=== PATIENT | male | born 2000 | race Caucasian/White ===

== ENCOUNTER 2019-09-16 18:38 | Emergency (ER) | payer OTHER, SELFPAY ==
[2019-09-16] MEDS ORDERED: NA CHLORIDE 0.9% 1,000 ML ONE ×2 (21:16→22:20)
[2019-09-16 21:41] LABS: Absolute Lymphocytes (CBC) 1.5 K/uL (0.7-4.9); Basophils % 0.4 % (0-1.3); Hematocrit 41.1 % (39.6-49.0); Lymphocytes % 18.6 % (15.3-44.8); MPV 8.2 fL (7.6-11.3); RBC Red Blood Cell Count 4.83 M/uL (4.33-5.43)
[2019-09-16 21:53] LABS: Albumin 3.5 g/dL (3.4-5.0); Bilirubin Direct 0.1 mg/dL (0-0.2); Bilirubin Total 0.5 mg/dL (0.2-1.0); Potassium 3.8 mmol/L (3.5-5.1); Protein, Total 8.3 g/dL (6.4-8.2)
--- NOTE | 2019-09-16 23:01 | ER ---
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 Got very ll1 hot. Started having BAKER and chills Th night. Fever started last night. + sore throat. Coronavirus screen: Proceed with normal triage. Patient denies a cough. Patient denies shortness of breath or difficulty breathing. Patient reports a measured and/or subjective temperature greater than 100.4F. Patient denies travel on a cruise ship or to a country the [facility] currently lists as an affected area. Patient denies contact with known and/or suspected case of COVID-19. Ebola Screen: Patient denies travel to an Ebola-affected area in the 21 days before illness onset. Initial Sepsis Screen: Does the patient meet any 2 criteria? HR > 90 bpm. No. Patient's initial sepsis screen is negative. Risk Assessment: Do you want to hurt yourself or someone else? Patient reports no desire to harm self or others. Onset of symptoms was September 12, 2019. 18:56 Method Of Arrival: Ambulatory ll1 18:56 Acuity: MARYLU 3 ll1 21:52 Initial Sepsis Screen: Does the patient have a suspected source of infection? No. vc Patient's initial sepsis screen is negative. Historical: - Allergies: 18:59 NKDA; ll1 - PSHx: 18:59 None; ll1 - Immunization history:: Flu vaccine is not up to date. - Social history:: Smoking status: Patient denies any tobacco usage or history of. Patient/guardian denies using alcohol, street drugs, tobacco products. Screenin:51 Abuse screen: Denies threats or abuse. Nutritional screening: No deficits noted. vc Tuberculosis screening: No symptoms or risk factors identified. Fall Risk None identified. Assessment: 21:49 General: Appears in no apparent distress. comfortable, Behavior is cooperative, vc anxious, quiet. General: Behavior is calm, cooperative, appropriate for age. Pain: Denies pain. Neuro: Level of Consciousness is awake, alert, obeys commands, Oriented to person, place, time, situation, Appropriate for age Reports weakness. Cardiovascular: Capillary refill < 3 seconds Patient's skin is warm and dry. Respiratory: Airway is patent Respiratory effort is even, unlabored, Respiratory pattern is regular, symmetrical. Respiratory: Denies shortness of breath at rest. GI: No signs and/or symptoms were reported involving the gastrointestinal system. : No signs and/or symptoms were reported regarding the genitourinary system. Derm: Skin is intact, is healthy with good turgor, Skin temperature is warm. 23:14 Reassessment: Patient appears in no apparent distress at this time. Patient and/or vc family updated on plan of care and expected duration. Pain level reassessed. Patient is alert, oriented x 3, equal unlabored respirations, skin warm/dry/pink. Patient states feeling better. Patient states symptoms have improved. Vital Signs: 18:56 BP 158 / 69; Pulse 104; Resp 18; Temp 100.2; Pulse Ox 99% ; Weight 131.54 kg; Height 5 ll1 ft. 10 in. (177.80 cm); Pain 8/10; 22:00 BP 151 / 69; Pulse 91; Resp 18; Pulse Ox 99% on R/A; vc 23:00 BP 118 / 70; Pulse 98; Resp 18; Pulse Ox 99% on R/A; vc 23:13 BP 118 / 70; Pulse 96; Resp 16; Pulse Ox 100% ; rv 18:56 Body Mass Index 41.61 (131.54 kg, 177.80 cm) ll1 ED Course: 18:41 Patient arrived in ED. fj1 18:58 Triage completed. ll1 18:59 Arm band placed on Patient notified of wait time. ll1 20:57 Antoni Pearce NP is PHCP. pm1 20:57 Ervin Tyler MD is Attending Physician. pm1 21:04 Natasha Maynard RN is Primary Nurse. vc 21:51 Patient has correct armband on for positive identification. Bed in low position. Pulse vc ox on. NIBP on. 23:13 No provider procedures requiring assistance completed. IV discontinued, intact, rv bleeding controlled, No redness/swelling at site. Pressure dressing applied. Administered Medications: 21:30 Drug: NS 0.9% 1000 ml Route: IV; Rate: 1000 ml; Site: right antecubital; vc 22:15 Drug: NS 0.9% 1000 ml Route: IV; Rate: 1000 ml; Site: right antecubital; vc Outcome: 23:00 Discharge ordered by . pm1 23:13 Discharged to home ambulatory. vc 23:13 Condition: good 23:13 Discharge instructions given to patient, Instructed on discharge instructions, follow up and referral plans. Demonstrated understanding of instructions, follow-up care. 23:14 Discharged to home ambulatory. rv 23:14 Condition: good 23:14 Discharge instructions given to patient, Instructed on discharge instructions, follow up and referral plans. Demonstrated understanding of instructions, follow-up care. 23:14 Patient left the ED. rv Addendum: 09/18/2019 17:58 Addendum: Other Pt notified of negative result by JENNIFER Lynn. Pt in the d m5 department when we were notified of his results. Signatures: Angie Ahuja RN RN dm5 Antoni Pearce, MANAGER COMMUNITY MANAGER COMMUNITY pm1 Jeremiah Garcia RN RN rv Natasha Maynard RN RN vc James, Frank fj1 Richard Mitchell RN RN ll1 Corrections: (The following items were deleted from the chart) 09/15 23:13 23:12 BP 151 / 69; Pulse 91bpm; Resp 18bpm; Pulse Ox 99% RA; vc vc
--- NOTE | 2019-09-16 23:01 | EDPHYS ---
Physician Documentation [facility] Name: Ar De Souza Age: 18 yrs Sex: Male : 2000 Arrival Date: 09/16/2019 Time: 18:41 Bed 4 Private MD: ED Physician Ervin Tyler HPI: 09/15 22:38 This 18 yrs old Male presents to ER via Ambulatory with complaints of Heat pm1 Exposure. 22:38 Onset: The symptoms/episode began/occurred yesterday. Associated signs and symptoms: pm1 Pertinent positives: fever, sore throat, Pertinent negatives: abdominal pain, chest pain, diarrhea, shortness of breath. The patient has not experienced similar symptoms in the past. The patient has not recently seen a physician. 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 Did not drink enough fluids and feels that he has heat exposure. Immediately after getting out of the tank he started feeling feverish with body aches and a sore throat. Historical: - Allergies: 18:59 NKDA; ll1 - PSHx: 18:59 None; ll1 - Immunization history:: Flu vaccine is not up to date. - Social history:: Smoking status: Patient denies any tobacco usage or history of. Patient/guardian denies using alcohol, street drugs, tobacco products. ROS: 22:38 Eyes: Negative for injury, pain, redness, and discharge. pm1 22:38 Neck: Negative for injury, pain, and swelling, Cardiovascular: Negative for chest pain, palpitations, and edema, Respiratory: Negative for shortness of breath, cough, wheezing, and pleuritic chest pain, Abdomen/GI: Negative for abdominal pain, nausea, vomiting, diarrhea, and constipation, Back: Negative for injury and pain, : Negative for injury, bleeding, discharge, and swelling, MS/Extremity: Negative for injury and deformity, Skin: Negative for injury, rash, and discoloration, Neuro: Negative for headache, weakness, numbness, tingling, and seizure. 22:38 Constitutional: Positive for body aches, fever, Negative for poor PO intake. 22:38 ENT: Positive for sore throat, Negative for ear pain, difficulty swallowing, difficulty handling secretions, hoarseness. Exam: 22:38 Constitutional: This is a well developed, well nourished patient who is awake, alert, pm1 and in no acute distress. Head/Face: Normocephalic, atraumatic. ENT: Nares patent. No nasal discharge, no septal abnormalities noted. Tympanic membranes are normal and external auditory canals are clear. Oropharynx with no redness, swelling, or masses, exudates, or evidence of obstruction, uvula midline. Mucous membranes moist. Neck: Trachea midline, no thyromegaly or masses palpated, and no cervical lymphadenopathy. Supple, full range of motion without nuchal rigidity, or vertebral point tenderness. No Meningismus. Chest/axilla: Normal chest wall appearance and motion. Nontender with no deformity. No lesions are appreciated. Cardiovascular: Regular rate and rhythm with a normal S1 and S2. No gallops, murmurs, or rubs. Normal PMI, no JVD. No pulse deficits. Respiratory: Lungs have equal breath sounds bilaterally, clear to auscultation and percussion. No rales, rhonchi or wheezes noted. No increased work of breathing, no retractions or nasal flaring. Abdomen/GI: Soft, non-tender, with normal bowel sounds. No distension or tympany. No guarding or rebound. No evidence of tenderness throughout. Back: No spinal tenderness. No costovertebral tenderness. Full range of motion. Skin: Warm, dry with normal turgor. Normal color with no rashes, no lesions, and no evidence of cellulitis. MS/ Extremity: Pulses equal, no cyanosis. Neurovascular intact. Full, normal range of motion. 22:38 Neuro: Orientation: is normal, Mentation: is normal, Motor: is normal, moves all fours, Sensation: is normal, no obvious gross deficits. Vital Signs: 18:56 BP 158 / 69; Pulse 104; Resp 18; Temp 100.2; Pulse Ox 99% ; Weight 131.54 kg; Height 5 ll1 ft. 10 in. (177.80 cm); Pain 8/10; 22:00 BP 151 / 69; Pulse 91; Resp 18; Pulse Ox 99% on R/A; vc 23:00 BP 118 / 70; Pulse 98; Resp 18; Pulse Ox 99% on R/A; vc 23:13 BP 118 / 70; Pulse 96; Resp 16; Pulse Ox 100% ; rv 18:56 Body Mass Index 41.61 (131.54 kg, 177.80 cm) ll1 MDM: 21:01 Patient medically screened. [facility] 22:44 Data reviewed: vital signs. Data interpreted: Pulse oximetry: on room air is 99 %. pm1 Interpretation: normal. 22:59 Counseling: I had a detailed discussion with the patient and/or guardian regarding: the pm1 historical points, exam findings, and any diagnostic results supporting the discharge/admit diagnosis, lab results, the need for outpatient follow up, to return to the emergency department if symptoms worsen or persist or if there are any questions or concerns that arise at home. 09/15 21:01 Order name: Flu; Complete Time: 22:10 pm1 09/15 21:01 Order name: Strep; Complete Time: 22:10 pm1 09/15 21:01 Order name: Basic Metabolic Panel; Complete Time: 22:10 pm1 09/15 21:01 Order name: CBC with Diff; Complete Time: 21:53 pm1 09/15 21:01 Order name: Hepatic Function; Complete Time: 22:10 pm1 09/15 21:01 Order name: CPK; Complete Time: 22:10 pm1 09/15 21:01 Order name: IV Saline Lock; Complete Time: 21:44 pm1 09/15 21:01 Order name: Labs collected and sent; Complete Time: 21:45 pm1 09/15 21:01 Order name: COVID-19 pm1 09/15 22:06 Order name: Throat Culture EDMS Administered Medications: 21:30 Drug: NS 0.9% 1000 ml Route: IV; Rate: 1000 ml; Site: right antecubital; vc 22:15 Drug: NS 0.9% 1000 ml Route: IV; Rate: 1000 ml; Site: right antecubital; vc Disposition: 09/16 07:38 Co-signature as Attending Physician, Ervin Tyler MD I agree with the assessment and [facility] plan of care. Disposition: 09/16/19 23:00 Discharged to Home. Impression: Exposure to excessive natural heat, Dehydration. - Condition is Stable. - Discharge Instructions: Dehydration, Adult, Heat Exhaustion Information, Rehydration, Adult. - Work release form, Medication Reconciliation Form, Thank You Letter, Antibiotic Education, Prescription Opioid Use form. - Follow up: Emergency Department; When: As needed; Reason: Worsening of condition. Follow up: Private Physician; When: 2 - 3 days; Reason: Recheck today's complaints, Continuance of care, Re-evaluation by your physician. - Problem is new. - Symptoms have improved. Signatures: Dispatcher [employer] EDErvin Baires, Antoni Clemens MD, cha, LOAN COORDINATOR LOAN COORDINATOR pm1 Jeremiah Garcia, RN RN rv Natasha Maynard RN RN Richard Jacobo RN RN ll1 Corrections: (The following items were deleted from the chart) 09/15 23:14 23:00 09/16/2019 23:00 Discharged to Home. Impression: Exposure to excessive natural rv heat; Dehydration. Condition is Stable. Forms are Medication Reconciliation Form, Thank You Letter, Antibiotic Education, Prescription Opioid Use. Follow up: Emergency Department; When: As needed; Reason: Worsening of condition. Follow up: Private Physician; When: 2 - 3 days; Reason: Recheck today's complaints, Continuance of care, Re-evaluation by your physician. Problem is new. Symptoms have improved. pm1
[2019-09-16 23:27] VITALS: TEMP 100.2
[2019-09-16 23:30] VITALS: BP 118/70
[2019-09-16 23:31] VITALS: O2SAT 100
== END 2019-09-16 23:14 | disposition home or self-care (01) ==
LOC: ER 18:38
DX: E86.0 Dehydration (principal); Z20.828 Contact with and (suspected) exposure to other viral communicable diseases; X30.XXXA Exposure to excessive natural heat, initial encounter
CPT/HCPCS: 36415; 80048; 80076; 82550; 85025; 87070; 87081; 87804; 99283; J7030; U0001

== ENCOUNTER 2019-09-18 15:11 | Emergency (ER) | payer SELFPAY, OTHER ==
[2019-09-18] MEDS ORDERED: ACETAMINOPHEN 500 MG TAB ONE (15:35)
[2019-09-18] MEDS ORDERED: NA CHLORIDE 0.9% 1,000 ML ONE (17:37)
[2019-09-18 18:13] LABS: Absolute Lymphocytes (CBC) 1.3 K/uL (0.7-4.9); Basophils % 0.4 % (0-1.3); Hematocrit 39.1 % (39.6-49.0); Lymphocytes % 13.5 % (15.3-44.8); RBC Red Blood Cell Count 4.68 M/uL (4.33-5.43)
--- NOTE | 2019-09-19 10:25 | EDPHYS ---
Physician Documentation [facility] Name: Ar De Souza Age: 18 yrs Sex: Male : 2000 Arrival Date: 09/18/2019 Time: 15:15 Bed 14 Private MD: ED Physician Abel Amin HPI: 09/17 15:26 This 18 yrs old Male presents to ER via Ambulatory with complaints of jmm Headache, Fever. 15:26 The patient reports fever, not measured (subjective). Onset: The symptoms/episode jmm began/occurred gradually, 1 day(s) ago. Modifying factors: there are no obvious modifying factors. Associated signs and symptoms: Pertinent negatives: abdominal pain, backache, chest pain, cough, diarrhea. Patient complains of joint pain and body aches beginning yesterday. Seen in the ED 3 days prior with concerns for heat exhaustion. Developed fever yesterday. Denies cough, shortness of breath, abdominal pain, mild headache, denies neck pain. . Historical: - Allergies: 15:25 NKDA; ca1 - Home Meds: 15:25 None [Active]; ca1 - PMHx: 15:25 None; ca1 - PSHx: 15:25 None; ca1 - Immunization history:: Adult Immunizations up to date. - Social history:: Smoking status: Patient denies any tobacco usage or history of. ROS: 15:26 Cardiovascular: Negative for chest pain, palpitations, and edema, Respiratory: Negative jmm for shortness of breath, cough, wheezing, and pleuritic chest pain. 15:26 Abdomen/GI: Negative for abdominal pain, nausea, vomiting, diarrhea, and constipation. 15:26 Constitutional: Positive for fever. 15:26 Neuro: Positive for headache. 15:26 All other systems are negative. Exam: 15:26 Constitutional: This is a well developed, well nourished patient who is awake, alert, jmm and in no acute distress. Head/Face: atraumatic. Eyes: EOMI, no conjunctival erythema appreciated ENT: Moist Mucus Membranes Neck: Trachea midline, Supple Chest/axilla: Normal chest wall appearance and motion. Cardiovascular: Regular rate and rhythm. No edema appreciated Respiratory: Normal respirations, no respiratory distress appreciated Abdomen/GI: Non distended, soft Back: Normal ROM Skin: General appearance color normal MS/ Extremity: Moves all extremities, no obvious deformities appreciated, no edema noted to the lower extremities Neuro: Awake and alert, normal gait Psych: Behavior is normal, Mood is normal, Patient is cooperative and pleasant Vital Signs: 15:20 BP 138 / 73; Pulse 105; Resp 20 S; Temp 101.4(O); Pulse Ox 100% on R/A; Weight 131.54 ca1 kg (R); Height 5 ft. 10 in. (177.80 cm) (R); Pain 9/10; 16:39 Temp 100.5; bp 18:41 BP 140 / 71; Pulse 78; Resp 16; Temp 97.9; Pulse Ox 99% ; bp 19:44 BP 130 / 53; Pulse 79; Resp 17 S; Pulse Ox 100% on R/A; jd3 20:56 BP 132 / 70; Pulse 88; Resp 16 S; Pulse Ox 100% on R/A; jd3 15:20 Body Mass Index 41.61 (131.54 kg, 177.80 cm) ca1 MDM: 17:20 Patient medically screened. [facility] 21:01 Data reviewed: vital signs, nurses notes. Counseling: I had a detailed discussion with brandon the patient and/or guardian regarding: the historical points, exam findings, and any diagnostic results supporting the discharge/admit diagnosis, lab results, radiology results, the need for outpatient follow up, to return to the emergency department if symptoms worsen or persist or if there are any questions or concerns that arise at home. ED course: Patient is alert and non toxic in appearance in the ED. No signs of resp distress. CXR clear. Patient is given strict return precautions. Patient understood and agrees with the plan of care. . 09/17 17:22 Order name: Flu [facility] 09/17 17:22 Order name: Strep [facility] 09/17 17:22 Order name: CBC with Diff [facility] 09/17 17:22 Order name: Procalcitonin [facility] 09/17 17:22 Order name: Lactate [facility] 09/17 18:42 Order name: Urine Dipstick--Ancillary (enter results) [facility] 09/17 17:22 Order name: Chest Single View XRAY [facility] 09/17 17:22 Order name: Urine Dipstick-Ancillary (obtain specimen); Complete Time: 18:33 morenita Administered Medications: 15:28 Drug: Tylenol 1000 mg Route: PO; ca1 19:00 Follow up: Response: No adverse reaction jd3 17:45 Drug: NS 0.9% 1000 ml Route: IV; Rate: 1 bolus; Site: right antecubital; bp 21:16 Follow up: Response: No adverse reaction; IV Status: Completed infusion; IV Intake: jd3 1000ml Disposition: 09/18 07:14 Co-signature as Attending Physician, Abel Amin MD. rn Disposition: 09/18/19 21:03 Discharged to Home. Impression: Viral Infection. - Condition is Stable. - Discharge Instructions: Viral Respiratory Infection. - Medication Reconciliation Form, Thank You Letter, Antibiotic Education, Prescription Opioid Use, Work release form form. - Follow up: Private Physician; When: 2 - 3 days; Reason: Recheck today's complaints, Continuance of care, Re-evaluation by your physician. Signatures: Dispatcher [employer] EDMS Ash Krishna PA PA jmm Nieto, Roman, MD MD rn Davies, Jonathon, RN RN jKhari Geiger RN RN Wandy Murillo RN RN ca1 Corrections: (The following items were deleted from the chart) 09/17 21:18 21:03 09/18/2019 21:03 Discharged to Home. Impression: Viral Infection. Condition is jd3 Stable. Forms are Medication Reconciliation Form, Thank You Letter, Antibiotic Education, Prescription Opioid Use. Follow up: Private Physician; When: 2 - 3 days; Reason: Recheck today's complaints, Continuance of care, Re-evaluation by your physician. brandon
--- NOTE | 2019-09-19 10:25 | ER ---
Nurse's Notes [facility] [place] Name: Ar De Souza Age: 18 yrs Sex: Male : 2000 Arrival Date: 09/18/2019 Time: 15:15 Bed 14 Private MD: Diagnosis: Viral Infection Presentation: 09/17 15:20 Chief complaint: Patient states: I came in Tuesday night, I had a heat exhaustion. They ca1 gave me 2 bags of IV fluids. I was sent home, felt better. But last night, I started feeling ill again, headache, fever, N/V, muscle aches. Denies diarrhea, SOB, cough. Coronavirus screen: Patient denies a cough. Patient denies shortness of breath or difficulty breathing. Patient reports a measured and/or subjective temperature greater than 100.4F. Patient denies travel on a cruise ship or to a country the [facility] currently lists as an affected area. Patient denies contact with known and/or suspected case of COVID-19. Pt states, "I was swabbed on Tuesday for FLU, Strep, Covid-19 Tuesday and I don't have the results yet". Pt instructed to keep mask on at all times, keep distance from other people in the lobby. PT verbalizes understanding to instructions. Ebola Screen: Patient negative for fever greater than or equal to 101.5 degrees Fahrenheit, and additional compatible Ebola Virus Disease symptoms Patient denies exposure to infectious person. Patient denies travel to an Ebola-affected area in the 21 days before illness onset. No symptoms or risks identified at this time. Initial Sepsis Screen: Does the patient meet any 2 criteria? No. Patient's initial sepsis screen is negative. Does the patient have a suspected source of infection? No. Patient's initial sepsis screen is negative. Risk Assessment: Do you want to hurt yourself or someone else? Patient reports no desire to harm self or others. Onset of symptoms was September 18, 2019. 15:20 Method Of Arrival: Ambulatory ca1 15:20 Acuity: MARYLU 3 ca1 Triage Assessment: 16:37 Headache History: The patient has had previous headaches and this one is similar to bp previous episodes. General: Appears in no apparent distress. uncomfortable, obese, Behavior is calm, cooperative, appropriate for age. Pain: Complains of pain in head Pain currently is 4 out of 10 on a pain scale. Pain began 1 day ago. Also complains of no other associated symptoms. EENT: No deficits noted. Neuro: Level of Consciousness is awake, alert, obeys commands, Oriented to person, place, time, situation, Appropriate for age Reports headache. Cardiovascular: Rhythm is sinus tachycardia. Respiratory: No deficits noted. GI: No signs and/or symptoms were reported involving the gastrointestinal system. : No signs and/or symptoms were reported regarding the genitourinary system. Derm: No deficits noted. Musculoskeletal: No deficits noted. Historical: - Allergies: 15:25 NKDA; ca1 - Home Meds: 15:25 None [Active]; ca1 - PMHx: 15:25 None; ca1 - PSHx: 15:25 None; ca1 - Immunization history:: Adult Immunizations up to date. - Social history:: Smoking status: Patient denies any tobacco usage or history of. Screenin:39 Abuse screen: Denies threats or abuse. Denies injuries from another. Nutritional bp screening: No deficits noted. Tuberculosis screening: No symptoms or risk factors identified. Fall Risk None identified. Assessment: 16:39 General: SEE TRIAGE NOTE. Pain: Complains of pain in head. bp 18:42 Reassessment: PER LAB, RESULTS PENDING. PT ASYMPTOMATIC AT THIS TIME. bp 19:44 General: Appears in no apparent distress. comfortable, Behavior is calm, cooperative, jd3 appropriate for age. Pain: Complains of pain in head Quality of pain is described as aching. Neuro: Level of Consciousness is awake, alert, obeys commands, Oriented to person, place, time, situation, Reports headache. Cardiovascular: Denies chest pain, Capillary refill < 3 seconds Patient's skin is warm and dry. Respiratory: Airway is patent Respiratory effort is even, unlabored, Respiratory pattern is regular, symmetrical, Denies cough, shortness of breath. GI: No signs and/or symptoms were reported involving the gastrointestinal system. : No signs and/or symptoms were reported regarding the genitourinary system. EENT: No signs and/or symptoms were reported regarding the EENT system. Derm: Skin is intact, Skin is dry, Skin is normal, Skin temperature is warm. Musculoskeletal: Circulation, motion, and sensation intact. Range of motion: intact in all extremities. 20:56 Reassessment: Patient appears in no apparent distress at this time. Patient and/or jd3 family updated on plan of care and expected duration. Pain level reassessed. Patient is alert, oriented x 3, equal unlabored respirations, skin warm/dry/pink. awaiting disposition. 21:17 Reassessment: Patient appears in no apparent distress at this time. Patient and/or jd3 family updated on plan of care and expected duration. Pain level reassessed. Patient is alert, oriented x 3, equal unlabored respirations, skin warm/dry/pink. Vital Signs: 15:20 BP 138 / 73; Pulse 105; Resp 20 S; Temp 101.4(O); Pulse Ox 100% on R/A; Weight 131.54 ca1 kg (R); Height 5 ft. 10 in. (177.80 cm) (R); Pain 9/10; 16:39 Temp 100.5; bp 18:41 BP 140 / 71; Pulse 78; Resp 16; Temp 97.9; Pulse Ox 99% ; bp 19:44 BP 130 / 53; Pulse 79; Resp 17 S; Pulse Ox 100% on R/A; jd3 20:56 BP 132 / 70; Pulse 88; Resp 16 S; Pulse Ox 100% on R/A; jd3 15:20 Body Mass Index 41.61 (131.54 kg, 177.80 cm) ca1 ED Course: 15:15 Patient arrived in ED. mr 15:25 Triage completed. ca1 15:25 Arm band placed on right wrist. ca1 15:30 Inserted saline lock: 20 gauge in right antecubital area, using aseptic technique. bp Blood collected. 16:37 Khari Veronica, MIRZA is Primary Nurse. bp 16:38 Ash Krishna PA is PHCP. jmm 16:38 Abel Amin MD is Attending Physician. jmm 16:39 Patient has correct armband on for positive identification. Bed in low position. Call bp light in reach. Side rails up X2. 21:15 No provider procedures requiring assistance completed. IV discontinued, intact, jd3 bleeding controlled, No redness/swelling at site. Pressure dressing applied. 09/18 01:10 Chest Single View XRAY In Process Unspecified. EDMS Administered Medications: 09/17 15:28 Drug: Tylenol 1000 mg Route: PO; ca1 19:00 Follow up: Response: No adverse reaction jd3 17:45 Drug: NS 0.9% 1000 ml Route: IV; Rate: 1 bolus; Site: right antecubital; bp 21:16 Follow up: Response: No adverse reaction; IV Status: Completed infusion; IV Intake: jd3 1000ml Intake: 21:16 IV: 1000ml; Total: 1000ml. jd3 Outcome: 21:03 Discharge ordered by MD. taylor 21:15 Discharged to home ambulatory, with family. jd3 21:15 Condition: stable 21:15 Discharge instructions given to patient, Instructed on discharge instructions, follow up and referral plans. Demonstrated understanding of instructions, follow-up care. 21:18 Patient left the ED. jd3 Signatures: Dispatcher [employer] EDMS Ash Krishna PA PA jmm ShaneHyacinth mr Rolle, Harris RN RN jKhari Geiger RN MIRAZ bp Wandy Murillo RN RN ca1 Corrections: (The following items were deleted from the chart) 15:33 15:20 Coronavirus screen: Proceed with normal triage. Patient denies a cough. Patient ca1 denies shortness of breath or difficulty breathing. Patient reports a measured and/or subjective temperature greater than 100.4F. Patient denies travel on a cruise ship or to a country the [facility] currently lists as an affected area. Patient denies contact with known and/or suspected case of COVID-19. I was swabbed on Tuesday for FLU, Strep, Covid-19 Tuesday ca1
[2019-09-19 11:53] VITALS: TEMP 97.9
[2019-09-19 11:54] VITALS: O2SAT 100
[2019-09-19 11:55] VITALS: BP 132/70
[2019-09-19 13:05] LABS: Urine Blood TRACE (NEG); Urine Glucose NEGATIVE (NEG); Urine Protein TRACE (NEG)
--- NOTE | 2019-10-12 14:08 | RAD REPORT ---
EXAM DESCRIPTION: RAD - Chest Single View - 09/18/2019 6:08 pm CLINICAL HISTORY: FEVER COMPARISON: None TECHNIQUE: AP portable chest image was obtained 09/18/2019 6:08 pm . FINDINGS: Original dictation could not be retrieved. Exam was resubmitted for interpretation. Lung volumes are low. Portable technique and large body habitus further accentuate the exam limitatio ns. No peripheral mass or consolidation. No significant degree of failure or volume overload. Heart a nd vasculature are normal. No measurable pleural effusion and no pneumothorax. No acute bony abnormal ity seen. No acute aortic findings suspected. IMPRESSION: Limited portable study showing no acute cardiopulmonary finding.
== END 2019-09-18 21:18 | disposition home or self-care (01) ==
LOC: ER 15:11
DX: B34.9 Viral infection, unspecified (principal)
CPT/HCPCS: 36415; 71045; 81003; 83605; 84145; 85025; 87070; 87081; 87804; 96360; 96361; 99284; J7030

== ENCOUNTER 2020-11-02 02:23 | Emergency (ER) | payer SELFPAY ==
[2020-11-02] MEDS ORDERED: ACETAMINOPHEN 500 MG TAB ONE (03:34)
--- NOTE | 2020-11-02 05:57 | ER ---
Nurse's Notes [facility] [place] Name: Ar De Souza Age: 19 yrs Sex: Male : 2000 Arrival Date: 11/02/2020 Time: 02:28 Bed 13 Private MD: Diagnosis: Covid pneumonia Presentation: 11/02 03:15 Chief complaint: Patient states: he has been running fever since Tuesday and having bb difficulty breathing. Coronavirus screen: difficulty breathing, fever, Client presents with at least one sign or symptom that may indicate coronavirus-19. Standard/surgical mask placed on the client. Ebola Screen: No symptoms or risks identified at this time. Initial Sepsis Screen: Does the patient meet any 2 criteria? No. Patient's initial sepsis screen is negative. Does the patient have a suspected source of infection? No. Patient's initial sepsis screen is negative. Risk Assessment: Do you want to hurt yourself or someone else? Patient reports no desire to harm self or others. Onset of symptoms was October 28, 2020. 03:15 Method Of Arrival: Ambulatory bb 03:15 Acuity: MARYLU 3 bb Triage Assessment: 03:17 General: Appears in no apparent distress. uncomfortable, obese, Behavior is bb cooperative, anxious. Pain: Complains of pain in throat Pain currently is 10 out of 10 on a pain scale. EENT: Throat is clear. Neuro: Level of Consciousness is awake, alert, obeys commands, Oriented to person, place, time, situation. Cardiovascular: Capillary refill < 3 seconds Patient's skin is warm and dry. Respiratory: Reports shortness of breath Respiratory effort is even, unlabored, Onset: The symptoms/episode began/occurred Tuesday, the patient has mild shortness of breath. Derm: Skin is pink, warm \T\ dry. Musculoskeletal: Circulation, motion, and sensation intact. Historical: - Allergies: 03:17 NKDA; bb - Home Meds: 03:17 None [Active]; bb - PMHx: 03:17 None; bb - PSHx: 03:17 None; bb - Immunization history:: Adult Immunizations up to date, Client reports having NOT received the Covid vaccine. - Social history:: Smoking status: Patient denies any tobacco usage or history of. Patient/guardian denies using alcohol, street drugs. Screenin:00 Abuse screen: Denies threats or abuse. Nutritional screening: No deficits noted. bb Tuberculosis screening: No symptoms or risk factors identified. Fall Risk None identified. Assessment: 05:00 General: Appears in no apparent distress. uncomfortable, Behavior is calm, cooperative. bb Neuro: Level of Consciousness is awake, alert, obeys commands, Oriented to person, place, time, situation. Cardiovascular: Rhythm is sinus tachycardia. Respiratory: Airway is patent Breath sounds are clear bilaterally. GI: No signs and/or symptoms were reported involving the gastrointestinal system. Derm: Skin is pink, warm \T\ dry. Musculoskeletal: Circulation, motion, and sensation intact. 06:40 Reassessment: Patient is alert, oriented x 3, equal unlabored respirations, skin bb warm/dry/pink. pt verbalized understanding of and agrees to plan of care discharge instructions given pt ambulated with steady gait to exit. Vital Signs: 03:15 BP 105 / 68; Pulse 121; Resp 20 S; Temp 101(O); Pulse Ox 97% on R/A; Weight 127.01 kg bb (R); Height 5 ft. 10 in. (177.80 cm) (R); Pain 10/10; 06:42 BP 126 / 83; Pulse 118; Resp 20 S; Temp 99.6(O); Pulse Ox 96% on R/A; bb 03:15 Body Mass Index 40.18 (127.01 kg, 177.80 cm) bb ED Course: 02:28 Patient arrived in ED. bp1 03:13 Marie Ge, RN is Primary Nurse. bb 03:17 Triage completed. bb 03:17 Arm band placed on Patient placed in waiting room, Patient notified of wait time. bb Antipyretics given from triage as ordered by an ER provider. Labs ordered per protocol. 05:00 Patient has correct armband on for positive identification. bb 05:01 Ciro Quezada MD is Attending Physician. pkl 06:09 XRAY CXR (1 view) In Process Unspecified. EDMS 06:41 No provider procedures requiring assistance completed. Patient did not have IV access bb during this emergency room visit. Administered Medications: 03:15 Drug: Tylenol 1000 mg Route: PO; bb 06:33 Drug: Decadron (dexamethasone) 10 mg Route: IM; Site: right deltoid; bb 06:41 Follow up: Response: No adverse reaction bb 06:33 Drug: Zithromax (azithromycin) 500 mg Route: PO; bb 06:42 Follow up: Response: No adverse reaction bb Outcome: 05:57 Discharge ordered by . rosario 06:41 Discharged to home ambulatory. bb 06:41 Condition: stable 06:41 Discharge instructions given to patient, Instructed on discharge instructions, follow up and referral plans. medication usage, Demonstrated understanding of instructions, follow-up care, medications, Prescriptions given X 4. 06:42 Patient left the ED. bb Signatures: Dispatcher [employer] EDMS Ciro Quezada MD MD pkl Ballard, Brenda, RN RN Mariam Pichardo
--- NOTE | 2020-11-02 05:57 | EDPHYS ---
Physician Documentation [facility] Adonis Name: Ar De Souza Age: 19 yrs Sex: Male : 2000 Arrival Date: 11/02/2020 Time: 02:28 Bed 13 Private MD: ED Physician Ciro Quezada HPI: 11/02 05:08 This 19 yrs old Male presents to ER via Ambulatory with complaints of pkl Breathing Difficulty. 05:08 The patient has shortness of breath at rest. Onset: The symptoms/episode began/occurred pkl 4 day(s) ago. Associated signs and symptoms: Pertinent positives: non-productive cough, sore throat . Patient has been exposed to someone with positive Covid 19. Historical: - Allergies: 03:17 NKDA; bb - Home Meds: 03:17 None [Active]; bb - PMHx: 03:17 None; bb - PSHx: 03:17 None; bb - Immunization history:: Adult Immunizations up to date, Client reports having NOT received the Covid vaccine. - Social history:: Smoking status: Patient denies any tobacco usage or history of. Patient/guardian denies using alcohol, street drugs. ROS: 05:08 Eyes: Negative for injury, pain, redness, and discharge. pkl 05:08 ENT: Positive for sore throat. 05:08 Neck: Negative for stiffness. 05:08 Cardiovascular: Negative for chest pain. 05:08 Respiratory: Positive for cough, shortness of breath. 05:08 Abdomen/GI: Negative for abdominal pain, nausea, vomiting, and diarrhea. 05:08 Back: Negative for acute changes. 05:08 : Negative for urinary symptoms. 05:08 MS/extremity: Negative for acute changes. 05:08 Skin: Negative for rash. 05:08 Neuro: Negative for altered mental status, loss of consciousness. Exam: 05:08 Head/Face: Normocephalic, atraumatic. Eyes: Pupils equal round and reactive to light, pkl extra-ocular motions intact. Lids and lashes normal. Conjunctiva and sclera are non-icteric and not injected. Cornea within normal limits. Periorbital areas with no swelling, redness, or edema. 05:08 ENT: Posterior pharynx: erythema, that is mild. 05:08 Neck: Exam negative for nuchal rigidity. 05:08 Chest/axilla: Exam negative for acute changes. 05:08 Cardiovascular: Rate: tachycardic, actual rate is 121 bpm, Rhythm: regular. 05:08 Respiratory: the patient does not display signs of respiratory distress, Respirations: normal, Breath sounds: rales, that are mild, are scattered. 05:08 Abdomen/GI: Bowel sounds: normal, Palpation: abdomen is soft and non-tender, in all quadrants. 05:08 Back: Exam negative for acute changes. 05:08 : Exam negative for acute changes. 05:08 Musculoskeletal/extremity: Exam is negative for acute changes. 05:08 Skin: Exam negative for rash. 05:08 Neuro: Orientation: is normal, Mentation: is normal, Cranial nerves: grossly normal, Motor: is normal. Vital Signs: 03:15 BP 105 / 68; Pulse 121; Resp 20 S; Temp 101(O); Pulse Ox 97% on R/A; Weight 127.01 kg bb (R); Height 5 ft. 10 in. (177.80 cm) (R); Pain 10/10; 06:42 BP 126 / 83; Pulse 118; Resp 20 S; Temp 99.6(O); Pulse Ox 96% on R/A; bb 03:15 Body Mass Index 40.18 (127.01 kg, 177.80 cm) bb MDM: 05:01 Patient medically screened. pkl 05:37 Data reviewed: vital signs, nurses notes, lab test result(s), radiologic studies, plain pkl films. 05:43 ED course: Discussed Lab and X' rays with patient. Advised to quarantine for 10 days. pkl To check O2 sats daily. To return to ER for evaluation if O2 sat is less than 92%. patient understood instructions. 11/02 03:15 Order name: Flu; Complete Time: 05:02 bb 11/02 03:15 Order name: Strep; Complete Time: 05:02 bb 11/02 04:18 Order name: Throat Culture EDMS 11/02 04:49 Order name: SARS-COV-2 RT PCR; Complete Time: 05:02 EDFL 11/02 05:03 Order name: XRAY CXR (1 view) pkl Administered Medications: 03:15 Drug: Tylenol 1000 mg Route: PO; bb 06:33 Drug: Decadron (dexamethasone) 10 mg Route: IM; Site: right deltoid; bb 06:41 Follow up: Response: No adverse reaction bb 06:33 Drug: Zithromax (azithromycin) 500 mg Route: PO; bb 06:42 Follow up: Response: No adverse reaction bb Disposition Summary: 11/02/20 05:57 Discharge Ordered Location: Home pkl Problem: new pkl Symptoms: are unchanged pkl Condition: Stable pkl Diagnosis - Covid pneumonia pkl Followup: pkl - With: Private Physician - When: 2 - 3 days - Reason: Re-evaluation by your physician Discharge Instructions: - Discharge Summary Sheet pkl Forms: - Medication Reconciliation Form pkl - Thank You Letter pkl - Antibiotic Education pkl - Prescription Opioid Use pkl Prescriptions: - Prednisone 20 mg Oral Tablet - take 1 tablet by ORAL route once daily for 5 days; 5 tablet; Refills: 0, pkl Product Selection Permitted - Zithromax Z-Negro 250 mg Oral Tablet - take 1 tablet by ORAL route as directed for 5 days Day 1 - take two (2) tablets pkl one time. Day 2, 3, 4 , 5 take one (1) tablet once daily.; 6 tablet; Refills: 0, Product Selection Permitted Signatures: Dispatcher [employer] EDCiro Rodriguez MD MD pkl Marie Ge RN RN bb Corrections: (The following items were deleted from the chart) 03:46 03:32 CORONAVIRUS ordered. EDFL EDMS
[2020-11-02 06:47] VITALS: BP 105/68; TEMP 101; O2SAT 97
[2020-11-02] MEDS ORDERED: dexAMETHasone 10 MG/ML VIAL ONE (06:50)
[2020-11-02] MEDS ORDERED: AZITHROMYCIN 250 MG TAB ONE (06:50)
--- NOTE | 2020-11-02 07:40 | RAD REPORT ---
EXAM DESCRIPTION: RAD - Chest Single View - 11/02/2020 6:09 am CLINICAL HISTORY: COUGH COMPARISON: Chest Single View dated 09/18/2019 FINDINGS: There are some scattered ill-defined opacities bilaterally. The heart size is within mayra l limits.No acute osseous abnormality. No significant pleural effusions or pneumothorax. IMPRESSION: Mild ill-defined bilateral airspace disease could reflect multifocal pneumonia including Covid-19.
== END 2020-11-02 06:42 | disposition home or self-care (01) ==
LOC: ER 02:23
DX: U07.1 COVID-19 (principal); J12.82 Pneumonia due to coronavirus disease 2019
CPT/HCPCS: 71045; 87070; 87081; 87804; 96372; 99284; J1100; U0003

== ENCOUNTER 2020-11-05 20:07 | Inpatient (IN) | payer SELFPAY ==
[2020-11-05] MEDS ORDERED: METHYLPREDNISOLONE 125 MG INJ ONE (23:30)
[2020-11-05] MEDS ORDERED: NA CHLORIDE 0.9% 1,000 ML ONE (23:30)
[2020-11-05] MEDS ORDERED: HYDROCODONE/CHLORPHEN 5 ML/OSYR ONE (23:30)
[2020-11-05 23:45] LABS: Absolute Lymphocytes (CBC) 1.1 K/uL (0.7-4.9); Basophils % 0.5 % (0-1.3); Hematocrit 44.5 % (39.6-49.0); Lymphocytes % 7.6 % (15.3-44.8); MPV 8.3 fL (7.6-11.3); RBC Red Blood Cell Count 5.17 M/uL (4.33-5.43)
[2020-11-06 00:16] LABS: Potassium 4.7 mmol/L (3.5-5.1)
[2020-11-06 00:31] LABS: Blood Morphology Comment NOT SEEN (NOT SEEN); Platelet Estimate ADEQ
[2020-11-06 00:50] LABS: Arterial Blood Carboxyhemoglob 1.7 % (0-1.5); Blood Gas Oxyhemoglobin 94.4 % (94-97); Blood O2 Saturation 96.8 % (92-98.5)
--- NOTE | 2020-11-06 01:35 | EDPHYS ---
Physician Documentation [facility] Name: Ar De Souza Age: 19 yrs Sex: Male : 2000 Arrival Date: 11/05/2020 Time: 20:10 Bed 6 Private MD: ED Physician Abel Amin HPI: 11/05 22:45 This 19 yrs old Male presents to ER via Ambulatory with complaints of rn Breathing Difficulty, cough, weakness. 22:45 The patient has shortness of breath at rest, with light activity. Onset: The rn symptoms/episode began/occurred 1 week(s) ago. Duration: The symptoms are intermittent. The patient's shortness of breath is aggravated by exertion, light activity, is alleviated by nothing. Associated signs and symptoms: Pertinent positives: non-productive cough, Pertinent negatives: fever, loss of consciousness. Severity of symptoms: At their worst the symptoms were moderate in the emergency department the symptoms are unchanged. The patient has not experienced similar symptoms in the past. The patient has been recently seen by a physician:. CovidPatient reports 1 week into this, diagnosed with Covid pneumonia recently, discharged with steroids/antibiotics/inhalers/cough medication. Patient states still does not feel well with intermittent shortness of breath especially with exertion. No chronic lung problems. No cardiac problems. Does not take any other medication.. Historical: - Allergies: 21:35 NKDA; kg - Home Meds: 21:35 None [Active]; kg - PMHx: 21:35 None; kg - PSHx: 21:35 None; kg - Immunization history:: Adult Immunizations not up to date, Client reports having NOT received the Covid vaccine. - Social history:: Smoking status: Patient denies any tobacco usage or history of. - Family history:: not pertinent. - Hospitalizations: : No recent hospitalization is reported. ROS: 22:45 Constitutional: Negative for fever, chills, and weight loss, Eyes: Negative for injury, rn pain, redness, and discharge, ENT: Positive nasal congestion and sore throat Neck: Negative for injury, pain, and swelling, Cardiovascular: Negative for chest pain, palpitations, and edema, Respiratory: Positive cough and shortness of breath Abdomen/GI: Negative for abdominal pain, nausea, vomiting, diarrhea, and constipation, Back: Negative for injury and pain, : Negative for injury, bleeding, discharge, and swelling, MS/Extremity: Negative for injury and deformity, Skin: Negative for injury, rash, and discoloration, Neuro: Negative for headache, numbness, tingling, and seizure. 22:45 All other systems are negative. Exam: 22:45 Constitutional: This is a well developed, well nourished patient who is awake, alert, rn mild tachypnea Head/Face: Normocephalic, atraumatic. Eyes: Periorbital areas with no swelling, redness, or edema. ENT: No stridor, positive dry mucous membranes Cardiovascular: Tachycardic, regular. No pulse deficits Respiratory: Mild tachypnea, no retractions Abdomen/GI: Soft, non-tender Skin: Warm, dry MS/ Extremity: Pulses equal, no cyanosis. Neuro: Awake and alert, GCS 15, oriented to person, place, time, and situation. Cranial nerves II-XII grossly intact. Motor strength 5/5 in all extremities. Sensory grossly intact. Cerebellar exam normal. Normal gait. Vital Signs: 21:29 Pulse 121; Resp 29; Temp 98.4(O); Pulse Ox 98% on R/A; Weight 131.54 kg (R); Height 5 kg ft. 10 in. (177.80 cm); Pain 01/04; 11/06 03:59 BP 137 / 61; Pulse 104; Resp 28; Pulse Ox 96% ; ea 11/05 21:29 Body Mass Index 41.61 (131.54 kg, 177.80 cm) kg MDM: 11/05 22:39 Patient medically screened. rn 11/06 00:59 ED course: Patient with significant acidosis, + anion gap, added more fluids, and rn lactate pending. ABG shows pH of 7.22 with a bicarb of 6.. 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 Interpretation: normal. Arterial blood gas: pH: 7.219, PO2: 97.6, PCO2: 15.5, HCO3: 6.1, Oxygen saturation: 96.8, Interpretation: metabolic acidosis. respiratory alkalosis. 01:31 Differential diagnosis: Bronchitis pneumonia, pulmonary edema, Sepsis Pneumonia, rn rhabdomyolysis acute kidney injury, hyperglycemia, acidosis. Data reviewed: vital signs, nurses notes, lab test result(s), radiologic studies, plain films, and as a result, I will admit patient. Test interpretation: by ED physician or midlevel provider: plain radiologic studies, Chest x-ray shows mild bilateral infiltrates. Counseling: I had a detailed discussion with the patient and/or guardian regarding: the historical points, exam findings, and any diagnostic results supporting the discharge/admit diagnosis, lab results, radiology results, the need for further work-up and treatment in the hospital. Response to treatment: the patient's symptoms have mildly improved after treatment, and as a result, I will admit patient. Admission orders: after a detailed discussion of the patient's condition and case, the admit orders are written by me. ED course: Patient with mild residual Covid pneumonia, no oxygen requirement. Seems like most of his symptoms today stem from hyperglycemia with acidosis. No known history of diabetes but strong family history of diabetics. We will start on insulin drip. 2 boluses of fluids ordered and given. Patient with some improvement. 11/05 22:44 Order name: CBC with Diff; Complete Time: 00:38 11/05 22:44 Order name: Basic Metabolic Panel; Complete Time: 11/05 22:44 Order name: Ferritin; Complete Time: 11/05 22:44 Order name: CRP; Complete Time: 11/05 23:53 Order name: Manual Differential; Complete Time: 00:38 EDPA 11/06 00:17 Order name: ABG; Complete Time: 00:51 rn 11/06 00:17 Order name: Lactate; Complete Time: 11/06 00:57 Order name: Creatine Phosphokinase; Complete Time: 01: EDPA 11/06 02:08 Order name: Glucose, Ancillary Testing; Complete Time: 06:18 EDMS 11/06 02:30 Order name: Hemoglobin A1c; Complete Time: 06:18 EDPA 11/06 03:30 Order name: Glucose, Ancillary Testing; Complete Time: 06:18 EDMS 11/06 04:22 Order name: Glucose, Ancillary Testing; Complete Time: 06:18 EDMS 11/06 05:26 Order name: Glucose, Ancillary Testing; Complete Time: 06:18 EDMS 11/06 05:28 Order name: Glucose, Ancillary Testing; Complete Time: 06:18 EDMS 11/06 06:02 Order name: Acetone Level; Complete Time: 09:25 EDMS 11/06 06:18 Order name: Basic Metabolic Panel; Complete Time: 09:25 EDMS 11/06 06:18 Order name: Lipid Profile; Complete Time: 09:25 EDMS 11/06 06:38 Order name: LDL, Direct; Complete Time: 09:25 EDMS 11/06 07:03 Order name: Procalcitonin; Complete Time: 09:25 EDMS 11/06 07:24 Order name: Glucose, Ancillary Testing; Complete Time: 09:25 EDMS 11/06 08:50 Order name: Phosphorus; Complete Time: 09:25 EDMS 11/06 08:50 Order name: Magnesium; Complete Time: 09:25 EDMS 11/06 08:57 Order name: Glucose, Ancillary Testing; Complete Time: 09:25 EDMS 11/06 09:19 Order name: Acetone Level EDMS 11/06 09:28 Order name: Basic Metabolic Panel EDMS 11/06 09:53 Order name: Glucose, Ancillary Testing EDMS 11/06 10:46 Order name: Glucose, Ancillary Testing EDMS 11/06 11:05 Order name: Urine Dipstick-Ancillary EDMS 11/06 11:49 Order name: Glucose, Ancillary Testing EDMS 11/06 12:49 Order name: Glucose, Ancillary Testing EDMS 11/06 13:17 Order name: Acetone Level EDMS 11/06 13:18 Order name: Basic Metabolic Panel EDMS 11/06 14:37 Order name: Glucose, Ancillary Testing EDMS 11/06 15:52 Order name: Glucose, Ancillary Testing EDMS 11/06 16:41 Order name: Glucose, Ancillary Testing EDMS 11/06 17:35 Order name: Glucose, Ancillary Testing EDMS 11/06 18:45 Order name: Glucose, Ancillary Testing EDMS 11/06 20:36 Order name: Glucose, Ancillary Testing EDMS 11/06 22:16 Order name: Glucose, Ancillary Testing EDMS 11/06 23:26 Order name: Glucose, Ancillary Testing EDMS 11/07 00:38 Order name: Glucose, Ancillary Testing EDMS 11/07 02:13 Order name: Glucose, Ancillary Testing EDMS 11/07 02:59 Order name: Glucose, Ancillary Testing EDMS 11/07 04:02 Order name: Glucose, Ancillary Testing EDMS 11/07 05:04 Order name: Glucose, Ancillary Testing EDMS 11/07 05:24 Order name: CBC with Automated Diff EDMS 11/07 05:54 Order name: Renal Panel EDMS 11/07 05:54 Order name: C-Reactive Protein EDMS 11/07 05:54 Order name: Magnesium EDMS 11/07 05:54 Order name: Thyroid Stimulating Hormone EDMS 11/07 05:54 Order name: Ferritin EDMS 11/07 06:02 Order name: Glucose, Ancillary Testing EDMS 11/07 07:01 Order name: Glucose, Ancillary Testing EDMS 11/07 08:01 Order name: Glucose, Ancillary Testing EDMS 11/07 09:05 Order name: Glucose, Ancillary Testing EDMS 11/07 09:28 Order name: Osmolality, Serum EDMS 11/07 10:06 Order name: Glucose, Ancillary Testing EDMS 11/07 10:34 Order name: Comprehensive Metabolic Panel EDMS 11/07 10:34 Order name: Lactic Dehydrogenase EDPA 11/07 10:54 Order name: Alcohol Serum/Plasma EDMS 11/07 10:57 Order name: Lactate EDPA 11/05 21:39 Order name: XRAY Chest Pa And Lat (2 Views); Complete Time: 09:25 rn 11/05 22:44 Order name: IV Start; Complete Time: 23:17 rn 11 22:44 Order name: CT Chest For PE Angio rn 11/06 02:29 Order name: CONS Physician Consult EDPA 11/07 10:41 Order name: CT EDPA 11/07 11:18 Order name: Acetaminophen Level EDPA 11/07 11:41 Order name: Glucose, Ancillary Testing EDPA 11/07 12:07 Order name: ABG Arterial Blood Gas EDPA 11/07 12:10 Order name: Glucose, Ancillary Testing EDPA 11/07 12:35 Order name: Salicylates Level EDPA 11/07 12:47 Order name: Acetone Level EDPA 11/07 13:38 Order name: Glucose, Ancillary Testing EDPA Administered Medications: 11/05 23:17 Drug: NS 0.9% 1000 ml Route: IV; Rate: 1000 ml; Site: left antecubital; 11/06 04:17 Follow up: Response: No adverse reaction; IV Intake: 1000ml 11/05 23:17 Drug: SOLU-Medrol (methylPrednisoLONE) 125 mg Route: IVP; Site: left antecubital; ea 11/06 01:12 Follow up: Response: No adverse reaction ea 11/05 23:17 Drug: Tussionex Pennkinetic ER (chlorpheniramine-hydrocodone) Suspension 5 ml Route: PO;ea 11/06 01:12 Follow up: Response: No adverse reaction ea 01:19 Drug: NS 0.9% 1000 ml Route: IV; Rate: 1000 ml; Site: left antecubital; ea 04:00 Follow up: Response: No adverse reaction; IV Intake: 1000ml ea 04:01 Follow up: Response: No adverse reaction; IV Intake: 1000ml ea 04:01 Follow up: Response: No adverse reaction; IV Status: Completed infusion; IV Intake: ea 1000ml 02:00 Drug: Insulin Drip - (Insulin Regular Human 100 units, NS 0.9% 100 ml) {Co-Signature: autumn lp1 (Jolanta Huber RN).} Route: IV; Rate: calculated rate; Site: right antecubital; 04:16 Follow up: Response: No adverse reaction; IV Status: Infusion continued upon admission ea 02:00 Drug: Sodium Bicarbonate 1 amp Route: IVP; Site: right antecubital; ea 04:16 Follow up: Response: No adverse reaction ea Disposition: 01:37 Critical Care:. rn Disposition Summary: 11/06/20 01:34 Hospitalization Ordered Hospitalization Status: Inpatient Admission rn Provider: Harris Chi rn Condition: Fair rn Problem: new rn Symptoms: have improved rn Bed/Room Type: Standard rn Location: [facility] ER HOLD(11/06/20 03:23) tl1 Room Assignment: ERHOLD-(11/06/20 03:23) tl1 Diagnosis - Diabetes mellitus due to underlying condition with ketoacidosis without coma rn - Acute kidney failure, unspecified rn - SARS-associated coronavirus as the cause of diseases classified elsewhere rn Forms: - Medication Reconciliation Form rn - SBAR form video editing intern time excluding procedures: 01:37 Critical care time: Bedside Care: 30 minutes, Consultation: 5 minutes. Total time: 35 rn minutes Signatures: Dispatcher [employer] Arcenio Gandhi MD MD kdr Nieto, Roman, MD MD rn Lasagna, Tonya, RN RN tl1 Priti Valenzuela, RN RN Debbie Anglin, RN RN kg Jolanta Huber RN lp1 Corrections: (The following items were deleted from the chart) 11/05 22:47 22:45 Constitutional: Negative for fever, chills, and weight loss, Eyes: Negative for rn injury, pain, redness, and discharge, ENT: Positive nasal congestion and sore throat Neck: Negative for injury, pain, and swelling, Cardiovascular: Negative for chest pain, palpitations, and edema, Respiratory: Positive cough and shortness of breath Abdomen/GI: Negative for abdominal pain, nausea, vomiting, diarrhea, and constipation, Back: Negative for injury and pain, : Negative for injury, bleeding, discharge, and swelling, MS/Extremity: Negative for injury and deformity, Skin: Negative for injury, rash, and discoloration, Neuro: Negative for headache, weakness, numbness, tingling, and seizure, rn 11/06 00:57 00:18 CREATINE PHOSPHOKINASE+C.LAB.BRZ ordered. EDMS EDMS 01:28 00:59 ED course: Patient with significant acidosis, no anion gap, added more fluids, rn and lactate pending. ABG shows pH of 7.22 with a bicarb of 6.. rn 03: 01:34 Intensive Care Unit rn tl1 03: 01:34 rn tl1
--- NOTE | 2020-11-06 01:35 | ER ---
Nurse's Notes [facility] Name: Ar De Souza Age: 19 yrs Sex: Male : 2000 Arrival Date: 11/05/2020 Time: 20:10 Bed 6 Private MD: Diagnosis: Diabetes mellitus due to underlying condition with ketoacidosis without coma;Acute kidney failure, unspecified;SARS-associated coronavirus as the cause of diseases classified elsewhere Presentation: 11/05 21:29 Chief complaint: Patient states: Pt stated, " I can't breath, my throat is hurting kg really bad. I feel like I'm just getting worse. " Pt stated he was diagnosed here with Covid Pneumonia and is on antibiotics. Coronavirus screen: Client denies travel out of the [place] in the last 14 days. At this time, unable to obtain information related to travel outside the [place] Client presents with at least one sign or symptom that may indicate coronavirus-19. Standard/surgical mask placed on the client. Provider contacted for isolation considerations. Client reports previous positive COVID test result. Date of collection: November 03, 2020. 21:29 Method Of Arrival: Ambulatory kg 21:29 Coronavirus screen: Client reports previous positive COVID test result. Date of kg collection: November 02, 2020. Ebola Screen: Patient negative for fever greater than or equal to 101.5 degrees Fahrenheit, and additional compatible Ebola Virus Disease symptoms Patient denies exposure to infectious person. Patient denies travel to an Ebola-affected area in the 21 days before illness onset. Initial Sepsis Screen: Does the patient meet any 2 criteria? RR > 20 per min. HR > 90 bpm. Does the patient have a suspected source of infection? Yes: Productive cough/pneumonia. Risk Assessment: Do you want to hurt yourself or someone else? Patient reports no desire to harm self or others. Onset of symptoms was November 02, 2020. 21:29 Acuity: MARYLU 3 bb Triage Assessment: 21:35 General: Appears uncomfortable, Behavior is calm, cooperative, appropriate for age, kg quiet. Pain: Complains of pain in Throat, chest, Generalized Pain currently is 10 out of 10 on a pain scale. at worst was 10 out of 10 on a pain scale. level that patient reports is acceptable is 5 out of 10 on a pain scale. Quality of pain is described as burning, sharp, stabbing. Respiratory: Reports shortness of breath at rest on exertion cough that is non-productive, Onset: The symptoms/episode began/occurred gradually, the patient has moderate shortness of breath. Historical: - Allergies: 21:35 NKDA; kg - Home Meds: 21:35 None [Active]; kg - PMHx: 21:35 None; kg - PSHx: 21:35 None; kg - Immunization history:: Adult Immunizations not up to date, Client reports having NOT received the Covid vaccine. - Social history:: Smoking status: Patient denies any tobacco usage or history of. - Family history:: not pertinent. - Hospitalizations: : No recent hospitalization is reported. Screenin:04 Abuse screen: Denies threats or abuse. Nutritional screening: No deficits noted. ea Tuberculosis screening: No symptoms or risk factors identified. Fall Risk None identified. Assessment: 23:04 General: Appears in no apparent distress. Behavior is calm, cooperative, appropriate ea for age. Pain: Complains of pain in sore throat. Neuro: Level of Consciousness is awake, alert, obeys commands, Oriented to person, place, time. Cardiovascular: Patient's skin is warm and dry. Respiratory: Airway is patent Respiratory effort is even, unlabored, Respiratory pattern is regular, symmetrical. Derm: Skin is pink, warm \\T\\ dry. 11/06 00:00 Reassessment: Patient and/or family updated on plan of care and expected duration. Pain ea level reassessed. Patient is alert, oriented x 3, equal unlabored respirations, skin warm/dry/pink. 02:00 Reassessment: Patient and/or family updated on plan of care and expected duration. Pain ea level reassessed. Patient is alert, oriented x 3, equal unlabored respirations, skin warm/dry/pink. Vital Signs: 11/05 21:29 Pulse 121; Resp 29; Temp 98.4(O); Pulse Ox 98% on R/A; Weight 131.54 kg (R); Height 5 kg ft. 10 in. (177.80 cm); Pain 01/04; 11/06 03:59 BP 137 / 61; Pulse 104; Resp 28; Pulse Ox 96% ; ea 11/05 21:29 Body Mass Index 41.61 (131.54 kg, 177.80 cm) kg ED Course: 11/05 20:10 Patient arrived in ED. es 21:35 Triage completed. kg 21:35 Arm band placed on. kg 22:12 XRAY Chest Pa And Lat (2 Views) In Process Unspecified. EDMS 22:39 Abel Amin MD is Attending Physician. rn 23:04 Priti Valenzuela, MIRZA is Primary Nurse. ea 23:05 Patient has correct armband on for positive identification. Bed in low position. Call ea light in reach. Side rails up X2. 23:18 Inserted saline lock: 20 gauge in left antecubital area, using aseptic technique. Blood ea collected. 11/06 01:10 CT Chest For PE Angio In Process Unspecified. EDMS 01:33 Harris Chi is Hospitalizing Provider. rn 02:30 Inserted saline lock: 20 gauge in right antecubital area, using aseptic technique. ea 03:59 No provider procedures requiring assistance completed. Patient admitted, IV remains in ea place. 11/07 07:50 serum osmol drawn by mn and sent to lab. dh3 Administered Medications: 11/05 23:17 Drug: NS 0.9% 1000 ml Route: IV; Rate: 1000 ml; Site: left antecubital; ea 11/06 04:17 Follow up: Response: No adverse reaction; IV Intake: 1000ml ea 11/05 23:17 Drug: SOLU-Medrol (methylPrednisoLONE) 125 mg Route: IVP; Site: left antecubital; ea 11/06 01:12 Follow up: Response: No adverse reaction 11/05 23:17 Drug: Tussionex Pennkinetic ER (chlorpheniramine-hydrocodone) Suspension 5 ml Route: PO;ea 11/06 01:12 Follow up: Response: No adverse reaction ea 01:19 Drug: NS 0.9% 1000 ml Route: IV; Rate: 1000 ml; Site: left antecubital; ea 04:00 Follow up: Response: No adverse reaction; IV Intake: 1000ml ea 04:01 Follow up: Response: No adverse reaction; IV Intake: 1000ml ea 04:01 Follow up: Response: No adverse reaction; IV Status: Completed infusion; IV Intake: ea 1000ml 02:00 Drug: Insulin Drip - (Insulin Regular Human 100 units, NS 0.9% 100 ml) {Co-Signature: ea lp1 (Jolanta Huber RN).} Route: IV; Rate: calculated rate; Site: right antecubital; 04:16 Follow up: Response: No adverse reaction; IV Status: Infusion continued upon admission ea 02:00 Drug: Sodium Bicarbonate 1 amp Route: IVP; Site: right antecubital; ea 04:16 Follow up: Response: No adverse reaction ea Intake: 04:00 IV: 1000ml; Total: 1000ml. ea 04:01 IV: 1000ml; Total: 2000ml. ea 04:01 IV: 1000ml; Total: 3000ml. ea 04:17 IV: 1000ml; Total: 4000ml. ea Outcome: 01:34 Decision to Hospitalize by Provider. rn 03:59 Admitted to ER Hold. Please see [facility] for further documentation. ea 03:59 Condition: stable 03:59 Instructed on the need for admit, Demonstrated understanding of instructions. 11/07 13:41 Patient left the ED. iw Signatures: Dispatcher [employer] Elayne Sims Brenda RN RN Asha Yang RN RN iw Nieto, Roman, MD MD rn [facility] Priti Valenzuela RN RN ea Graham, Kristen, RN RN kg Laura Pena RN lp1 Corrections: (The following items were deleted from the chart) 11/05 21:35 21:29 Chief complaint: Patient states: Pt stated, " I can't breath, my throat is kg hurting really bad. I feel like I'm just getting worse. " Pt stated he was diagnosed here with Covid Pneumonia and is on antibiotics. kg 11/06 01:03 11/05 21:29 Acuity: MARYLU 4 kg bb
[2020-11-06] MEDS ORDERED: INSULIN -REGULAR HUMAN 50 UNIT/0.5 ML ML ONE (02:02)
[2020-11-06] MEDS ORDERED: NA CHLORIDE 0.9% 100 ML ONE (02:02)
[2020-11-06] MEDS ORDERED: SODIUM BICARB 50 MEQ/50ML VIAL ONE (02:03)
--- NOTE | 2020-11-06 03:33 | P.HP ---
Certification for Inpatient Patient admitted to: Inpatient With expected LOS: >2 Midnights Patient will require the following post-hospital care: None Practitioner: I am a practitioner with admitting privileges, knowledge of patient current condition, hospital course, and medical plan of care. Services: Services provided to patient in accordance with Admission requirements found in Title 42 Section 412.3 of the Code of Federal Regulations Patient History Date of Service: 11/06/20 Reason for admission: DKA History of Present Illness: Mr. De Souza is a 19 yo M who presents with SOB, cough and weakness. He started having symptoms a week ago, and was diagnosed with COVID on Tuesday. Today, he says the shortness of breath continue to worsen. Reports QUIGLEY, anorexia. Denies fever, nausea, vomiting, diarrhea. No relief with steroids, antibiotics, inhalers, or antitussives. Reports good fluid intake. WBC 14, Na 131, HCO3, AGMA - gap of 17, Cr 1.44, GFR 62, Glu 325. Ferritin 940, CRP 153. On ABG pH 7.22, CO2 15.5, HCO3 10. CT scan shows mild COVID pneumonia, no pulmonary embolism. Allergies No Known Drug Allergies Allergy (Unverified 01/30/17 22:35) Unknown No Known Drug Allerg Allergy (Uncoded 11/14/15 09:06) Unknown - Past Medical/Surgical History Diabetic: Yes Past Medical History: Patient denies medical history Past Surgical History: Patient denies surgical history - Family History Family History: Reviewed- Non-Contributory - Social History Smoking Status: Never smoker Alcohol use: No CD- Drugs: No Caffeine use: Yes Place of Residence: Home Review of Systems 10-point ROS is otherwise unremarkable General: Weakness, As per HPI Respiratory: Cough, Shortness of Breath, SOB with Excertion, As per HPI Physical Examination - Physical Exam General: Alert, In no apparent distress HEENT: Atraumatic, PERRLA, Mucous membr. moist/pink, EOMI, Sclerae nonicteric Neck: Supple, 2+ carotid pulse no bruit, No LAD, Without JVD or thyroid abnormality Respiratory: Rhonchi/gurgles, Other (tachypneic ) Cardiovascular: Regular rate/rhythm, Normal S1 S2 Gastrointestinal: Normal bowel sounds, No tenderness Musculoskeletal: No tenderness Integumentary: No rashes Neurological: Normal gait, Normal speech, Normal strength at 5/5 x4 extr, Normal tone, Normal affect Lymphatics: No axilla or inguinal lymphadenopathy - Studies Laboratory Data (last 24 hrs) 11/05/20 23:15: Sodium 131 L, Potassium 4.7, BUN 14, Creatinine 1.44 H, Glucose 325 H 11/05/20 23:15: WBC 14.00 H, Hgb 14.6, Hct 44.5, Plt Count 342 Assessment and Plan - Problems (Diagnosis) (1) Pneumonia due to COVID-19 virus Current Visit: Yes Status: Acute (2) DKA (diabetic ketoacidosis) Current Visit: Yes Status: Acute Qualifiers: Diabetes mellitus type: other specified (including OLIVER) Diabetes mellitus complication detail: without coma Qualified Code(s): E13.10 - Other specified diabetes mellitus with ketoacidosis without coma (3) Diabetes Current Visit: Yes Status: Acute Qualifiers: Diabetes mellitus type: other specified (including OLIVER) Diabetes mellitus exterminator helper termite insulin use: without fdc use Diabetes mellitus complication status: without complication Qualified Code(s): E13.9 - Other specified diabetes mellitus without complications (4) BRIAN (acute kidney injury) Current Visit: Yes Status: Acute - Plan nephrology consulted continue aggressive fluid hydration, insulin drip, bicarb given in ED BMP every 4 hours, monitor potassium closely NPO until AG closes Q1hr blood glucose checks dietitian consulted, clinical trial educator consulted A1c pending continue IV steroids, ivermectin, and covid supplements monitor O2 DVT ppx Discharge Plan: Home Plan to discharge in: 48 Hours - Advance Directives Does patient have a Living Will: No Does patient have a Durable POA for Healthcare: No - Code Status/Comfort Care Code Status Assessed: Yes (full code ) Critical Care: No Time Spent Managing Pts Care (In Minutes): 70
[2020-11-06] MEDS ORDERED: ONDANSETRON 4 MG/2 ML VIAL IV PRN (05:01)
[2020-11-06] MEDS ORDERED: MELATONIN 5 MG TABLET PO PRN (05:01)
[2020-11-06] MEDS ORDERED: BENZONATATE 100 MG CAP PO PRN (05:01)
[2020-11-06] MEDS ORDERED: MORPHINE 2 MG/ML SYR IV PRN (05:01)
[2020-11-06] MEDS ORDERED: D5.45NS W/KCL 20MEQ 1,000 ML IV SCH (05:01)
[2020-11-06] MEDS ORDERED: INSULIN -REGULAR HUMAN 100 UNIT in NA CHLORIDE 0.9% 100 ML IV SCH (05:01)
[2020-11-06] MEDS: NACHLORIDE 0.45% 1,000 ML with POTASSIUM CL 20 MEQ IV SCH ×4 (05:01→09:04)
[2020-11-06] MEDS ORDERED: HYDROCODONE/CHLORPHEN 5 ML/OSYR PO PRN (05:01)
[2020-11-06 05:06] VITALS: BMI 41.5
[2020-11-06] MEDS ORDERED: D5.45NS W/KCL 20MEQ 1,000 ML IV ONE ×2 (05:36→10:00)
[2020-11-06] MEDS ORDERED: NACHLORIDE 0.45% 1,000 ML IV ONE (05:55)
[2020-11-06 06:15] LABS: BUN Blood Urea Nitrogen 14 mg/dL (7-18); Glucose Level 315 mg/dL (74-106); HDL Cholesterol 24 mg/dL (40-60); Potassium 4.6 mmol/L (3.5-5.1); Sodium Level 133 mmol/L (136-145)
[2020-11-06 06:18] LABS: Bicarbonate 8 mmol/L (21-32)
[2020-11-06 06:37] LABS: LDL, Direct 59 mg/dL (100-129)
--- NOTE | 2020-11-06 07:31 | RAD REPORT ---
EXAM DESCRIPTION: RAD - Chest Pa And Lat (2 Views) - 11/05/2020 10:13 pm CLINICAL HISTORY: COVID;Cough COMPARISON: Chest Single View dated 11/02/2020; Chest Single View dated 09/18/2019; Chest For Pe Angio dated 11/06/2020 FINDINGS: Mild patchy bilateral airspace disease, better seen on today's radiograph versus 80 2020 p er The heart size is within normal limits.No acute osseous abnormality. No significant pleural effusi ons or pneumothorax. IMPRESSION: Patchy bilateral airspace disease concerning for multifocal pneumonia.
[2020-11-06 08:50] LABS: Magnesium 2.6 mg/dL (1.8-2.4); Phosphorus 2.3 mg/dL (2.5-4.9)
[2020-11-06] MEDS ORDERED: THIAMINE HCL 100 MG TABLET ONE (08:55)
[2020-11-06] MEDS ORDERED: ASCORBIC ACID 500 MG TABLET ONE ×4 (08:55→21:52)
[2020-11-06] MEDS ORDERED: METHYLPREDNISOLONE 40 MG INJ ONE ×2 (08:56→21:52)
[2020-11-06] MEDS ORDERED: ZINC SULFATE 220 MG CAP ONE (08:56)
[2020-11-06] MEDS ORDERED: FAMOTIDINE 20 MG TAB ONE (08:56)
[2020-11-06] MEDS ORDERED: VITAMIN D 1000 UNIT TAB ONE (08:56)
[2020-11-06] MEDS ORDERED: ENOXAPARIN 40 MG/0.4 ML SQ ONE (08:57)
[2020-11-06] MEDS: ENOXAPARIN 40 MG/0.4 ML SQ SCH (09:00)
[2020-11-06] MEDS: VITAMIN D 1000 UNIT TAB PO SCH (09:00)
[2020-11-06] MEDS: ASCORBIC ACID 500 MG TABLET PO SCH ×4 (09:00→21:00)
[2020-11-06] MEDS: THIAMINE HCL 100 MG TABLET PO SCH (09:00)
[2020-11-06] MEDS: METHYLPREDNISOLONE 125 MG INJ IV SCH ×2 (09:00→21:00)
[2020-11-06] MEDS: FAMOTIDINE 20 MG TAB PO SCH ×2 (09:00→21:00)
[2020-11-06] MEDS: ZINC SULFATE 220 MG CAP PO SCH (09:00)
[2020-11-06 09:27] LABS: BUN Blood Urea Nitrogen 14 mg/dL (7-18); Glucose Level 283 mg/dL (74-106); Potassium 4.4 mmol/L (3.5-5.1); Sodium Level 134 mmol/L (136-145)
[2020-11-06 09:28] LABS: Bicarbonate 8 mmol/L (21-32)
[2020-11-06] MEDS ORDERED: IVERMECTIN 3 MG TABLET PO SCH (10:00)
[2020-11-06] MEDS: POTASS/SODIUM PHOSPHATE 1 PKT POWD.PACK PO SCH ×3 (11:00→13:00)
[2020-11-06 11:05] LABS: Urine Blood 2+ (Negative); Urine Glucose 2+ (Negative); Urine Protein 3+ (Negative); Urine Specific Gravity >=1.030 (1.005-1.030)
--- NOTE | 2020-11-06 11:42 | RAD REPORT ---
EXAM DESCRIPTION: CT - Chest For Pe Angio - 11/06/2020 6:32 am CLINICAL HISTORY: The patient is 19 years old and is Male; Cough;Dyspnea TECHNIQUE: Axial computed tomographic angiography images of the chest with intravenous contrast. S agittal and coronal reformatted images were created and reviewed. This CT exam was performed using one or more of the following dose reduction techniques: automated exposure control, adjustment of t he mA and/or kV according to patient size, and/or use of iterative reconstruction technique. MIP re constructed images were created and reviewed. COMPARISON: No relevant prior studies available. FINDINGS: Pulmonary arteries: Unremarkable. No pulmonary embolism. Aorta: No acute findings. No thoracic aortic aneurysm. Lungs: Scattered groundglass opacities throughout the lungs bilaterally. Pleural space: Unremarkable. No significant effusion. No pneumothorax. Heart: Unremarkable. No cardiomegaly. No significant pericardial effusion. No evidence of RV dysfunction. Bones/joints: No acute fracture. No dislocation. Soft tissues: Unremarkable. Lymph nodes: Unremarkable. No enlarged lymph nodes. Liver: Diffuse hepatic steatosis. IMPRESSION: 1. Scattered groundglass opacities throughout the lungs bilaterally. Findings are no nspecific but concerning for an infectious etiology such as atypical pneumonia/Covid. 2. No evidence of pulmonary embolism. Electronically signed by: See Davies MD 11/06/2020 1:38 AM CDT Due to temporary technical issues with the PACS/Fluency reporting system, reports are being signed by the in house radiologist without review as a courtesy to ensure prompt reporting. The interpreting r adiologist is fully responsible for the content of the report.
[2020-11-06] MEDS: NA CHLORIDE 0.9% 1,000 ML IV SCH ×3 (12:00→20:00)
[2020-11-06] MEDS ORDERED: NA CHLORIDE 0.9% 1,000 ML IV ONE ×2 (12:48→17:26)
[2020-11-06] MEDS ORDERED: NA CHLORIDE 0.9% 2,000 ML ONE ×2 (12:49→20:08)
[2020-11-06] MEDS ORDERED: POTASS/SODIUM PHOSPHATE 1 PKT POWD.PACK ONE (12:52)
[2020-11-06 13:17] LABS: BUN Blood Urea Nitrogen 14 mg/dL (7-18); Bicarbonate 7 mmol/L (21-32); Glucose Level 303 mg/dL (74-106); Potassium 4.4 mmol/L (3.5-5.1); Sodium Level 133 mmol/L (136-145)
[2020-11-06] MEDS ORDERED: NA CHLORIDE 0.9% 1,000 ML ONE (17:39)
--- NOTE | 2020-11-06 17:40 | CON ---
Date of Consultation: 11/06/2020 Reason For Consultation: Elevated BUN and creatinine, acidosis, and electrolyte imbalance. History Of Present Illness: This is a pleasant 19-year-old gentleman without any significant past me dical history. The patient was in his regular state of health with COVID 1 week ago. Sin ce then, the patient started feeling sicker and sicker without any nausea and vomiting. Shortness of breath has been worsening. For that reason, he reported to the emergency room. Upon arrival, found to have elevation in creatinine 1.4 with severe acidosis, pH 7.2, and hyperglycemia. The patient wa s treated as DKA. We have been consulted. The patient had started on aggressive hydration with DKA protocol. The patient started slightly feeling better, blood sugar has been better. Past Medical History: Negative. Allergies: NO KNOWN DRUGS ALLERGY. Past Surgical History: Negative. Family History: Positive for diabetes. Social History: Denied smoking. Active alcohol. Denied drugs abuse. Review of Systems: Head and Neck: No red eye. No ear pain. GI: No nausea. No vomiting. : No polyuria. No dysuria. No hematuria. Spiral Winder: Not applicable. Respiratory: Has cough and shortness of breath. Cardiovascular: Has palpitation. Neuro: Generalized fatigue. No neuropathy. Musculoskeletal: Generalized fatigue. Skin: No rash. Endocrine: Has polydipsia. Physical Examination: Vital Signs: When I saw the patient; blood pressure of 155/61, pulse of 114. Chest: Crackles bilateral. Heart: S1, S2. Tachycardic. Abdomen: Soft, morbidly obese. Could not appreciate any organomegaly. Extremities: Trace edema. Neuro: Alert. No focality. Laboratory Data: WBC 14, H and H 14.6/44.5. Sodium 134, potassium 4.4, bicarb 8, BUN 14, creatinine 1, calcium 8.7. Urinalysis; specific gravity 1.030, +3 protein. Assessment And Plan: 1.Acute kidney injury secondary to prerenal, secondary to glucose diuresis, recovered, resolved. I am going to continue to monitor the patient on hydration. The patient is currently still on the dry side. I will bolus him with another liter of normal saline. 2.Normal potassium level currently. I agree with potassium supplement with bicarb given the diabeti c ketoacidosis. 3.Acidosis high anion gap metabolic acidosis secondary to diabetic ketoacidosis. Continue current b icarb drip, continue insulin drip, and we will follow up. 4.Hyponatremia, depletional, corrected sodium with glucose within normal limit. 5.Hypertension. Currently, the patient in stress. We will follow up. 6.Proteinuria possibly secondary to diabetes. I am going to go ahead and send for protein creatinin e ratio to quantify the proteinuria and we will follow up. GENNA Voice ID: [id number] Report ID: [id number]
[2020-11-06] MEDS ORDERED: HYDROCODONE/CHLORPHEN 5 ML/OSYR ONE (17:52)
--- NOTE | 2020-11-06 18:56 | P.PN ---
Date of Service: 11/06/20 Patient seen and examined. He is on insulin drip. Patient with persistent metabolic acidosis, bicarb between 7 and 9. Significant anionic gap. Admission pH 7.2. Diagnosis; DKA COVID 19 infection Plan: Continue DKA protocol with insulin drip. Continue to monitor electrolyte. Keep NPO. Patient is currently asymptomatic from the COVID.
[2020-11-06] MEDS ORDERED: FAMOTIDINE 20 MG/2 ML VIAL IV ONE (21:53)
[2020-11-07] MEDS: NA CHLORIDE 0.9% 1,000 ML IV SCH ×2 (04:00)
[2020-11-07] MEDS ORDERED: NA CHLORIDE 0.9% 1,000 ML ONE ×3 (04:36→14:01)
[2020-11-07 05:15] LABS: Absolute Lymphocytes (CBC) 1.1 K/uL (0.7-4.9); Basophils % 0.1 % (0-1.3); Hematocrit 38.7 % (39.6-49.0); Lymphocytes % 8.1 % (15.3-44.8); RBC Red Blood Cell Count 4.58 M/uL (4.33-5.43)
[2020-11-07 05:51] LABS: Albumin 2.2 g/dL (3.4-5.0); BUN Blood Urea Nitrogen 11 mg/dL (7-18); Ferritin 886.2 ng/mL (26-388); Glucose Level 195 mg/dL (74-106); Magnesium 2.2 mg/dL (1.8-2.4); Phosphorus 1.6 mg/dL (2.5-4.9); Potassium 3.5 mmol/L (3.5-5.1); Sodium Level 140 mmol/L (136-145); Thyroid Stimulating Hormone 0.478 uIU/mL (0.360-3.740)
[2020-11-07 05:53] LABS: Bicarbonate 8 mmol/L (21-32)
[2020-11-07] MEDS ORDERED: LORazepam 2 MG/ML VIAL ONE (08:06)
[2020-11-07] MEDS: ENOXAPARIN 40 MG/0.4 ML SQ SCH (09:00)
[2020-11-07] MEDS: ZINC SULFATE 220 MG CAP PO SCH (09:00)
[2020-11-07] MEDS: FAMOTIDINE 20 MG TAB PO SCH (09:00)
[2020-11-07] MEDS: ASCORBIC ACID 500 MG TABLET PO SCH ×2 (09:00→12:02)
[2020-11-07] MEDS: METHYLPREDNISOLONE 125 MG INJ IV SCH (09:00)
[2020-11-07] MEDS: THIAMINE HCL 100 MG TABLET PO SCH (09:00)
[2020-11-07] MEDS: VITAMIN D 1000 UNIT TAB PO SCH (09:00)
[2020-11-07] MEDS ORDERED: ASCORBIC ACID 500 MG TABLET ONE ×2 (09:09→12:19)
[2020-11-07] MEDS ORDERED: ZINC SULFATE 220 MG CAP ONE (09:09)
[2020-11-07] MEDS ORDERED: VITAMIN D 1000 UNIT TAB ONE (09:09)
[2020-11-07] MEDS ORDERED: THIAMINE HCL 100 MG TABLET ONE (09:09)
[2020-11-07] MEDS ORDERED: METHYLPREDNISOLONE 125 MG INJ ONE (09:10)
[2020-11-07] MEDS ORDERED: ENOXAPARIN 40 MG/0.4 ML SQ ONE (09:10)
[2020-11-07] MEDS ORDERED: POTASSIUM PHOS 20 MM in NA CHLORIDE 0.9% 500 ML IV ONE (10:00)
[2020-11-07] MEDS ORDERED: FAMOTIDINE 20 MG TAB ONE ×3 (10:16→10:43)
[2020-11-07 10:27] LABS: ALT/SGPT 88 U/L (12-78); AST/SGOT 43 U/L (15-37); Albumin 2.3 g/dL (3.4-5.0); Alkaline Phosphatase 106 U/L (45-117); BUN Blood Urea Nitrogen 11 mg/dL (7-18); Bilirubin Total 0.4 mg/dL (0.2-1.0); Glucose Level 174 mg/dL (74-106); Potassium 3.2 mmol/L (3.5-5.1); Protein, Total 7.3 g/dL (6.4-8.2); Sodium Level 142 mmol/L (136-145)
[2020-11-07 10:33] LABS: Bicarbonate 12 mmol/L (21-32)
[2020-11-07 10:33] LABS: Arterial Blood Carboxyhemoglob 1.6 % (0-1.5); Blood Gas Oxyhemoglobin 95.7 % (94-97); Blood O2 Saturation 98.1 % (92-98.5)
--- NOTE | 2020-11-07 10:39 | RAD REPORT ---
EXAM DESCRIPTION: CT - Stone Protocol - 11/07/2020 10:02 am CLINICAL HISTORY: Flank pain. magdi acidosis COMPARISON: Chest For Pe Angio dated 11/06/2020 TECHNIQUE: Axial images were obtained without oral or IV contrast. Lack of contrast limits solid org an and vascular assessment. The [id number] spans the entirety of the system partially obscuring uppermost abdomen and lung bases. Coronal reformatted images were obtained and reviewed. All CT scans are performed using dose optimization technique as appropriate and may include automated exposure control or mA/KV adjustment according to patient size. FINDINGS: Interstitial opacities are present in both lung bases. Imaged portions of the liver and spleen show no suspicious findings on non-contrast imaging. The panc reas and adrenal glands are normal. No pathologic lymphadenopathy in the abdomen or pelvis. No urinary tract stones or obstructive uropathy. No bowel obstruction, free air, free fluid or abscess. Normal appendix noted. No significant bony abnormality. IMPRESSION: No urinary tract stones or obstructive uropathy. Interstitial opacities in both lung bases likely represents viral infection/bronchitis.
[2020-11-07] MEDS ORDERED: POTASSIUM CL SA 10 MEQ TAB PO ONE ×2 (10:46→12:19)
[2020-11-07 11:18] VITALS: TEMP 98
[2020-11-07 12:04] VITALS: BP 132/73
[2020-11-07 13:48] VITALS: O2SAT 96
--- NOTE | 2020-11-07 14:24 | P.DS ---
Admission Date: 11/06/20 Discharge Date: 11/07/20 Disposition: TRANSFER TO [facility] Discharge Condition: FAIR Reason for Admission: DKA - Problems (1) COVID-19 virus infection Current Visit: Yes Status: Acute (2) DKA (diabetic ketoacidosis) Current Visit: Yes Status: Acute Qualifiers: Diabetes mellitus type: other specified (including OLIVER) Diabetes mellitus complication detail: without coma Qualified Code(s): E13.10 - Other specified diabetes mellitus with ketoacidosis without coma (3) BRIAN (acute kidney injury) Current Visit: Yes Status: Acute Brief History of Present Illness: 19 yo M presented with SOB, cough and weakness. He started having symptoms a week ago, and was diagnosed with COVID few days back. He reported QUIGLEY, and anorexia. Blood work in the ED was consistent with DKA, CT scan showed mild coving pneumonia. Patient was admitted for further management of DKA. Hospital Course: Patient admitted to the medical floor and DKA protocol initiated with insulin drip and aggressive IV hydration. Electrolytes were monitored and replaced as needed. Metabolic acidosis persisted for more than 48 hrs. Transfer [facility] to [facility] due to limited availability of ICU beds and staff. Patient accepted for transfer. He has not required oxygen. He is clinically stable for transfer. Vital Signs/Physical Exam: Temp Pulse Resp BP Pulse Ox 98.0 F 83 28 H 132/73 98 11/07/20 12:00 11/07/20 12:00 11/07/20 12:00 11/07/20 12:00 11/07/20 12:00 General: Alert, In no apparent distress, Obese Neck: JVD not distended Respiratory: Clear to auscultation bilaterally, Normal air movement Cardiovascular: No edema, Regular rate/rhythm, Normal S1 S2 Gastrointestinal: Soft and benign, Non-distended Musculoskeletal: No swelling Integumentary: No rashes Neurological: Normal strength at 5/5 x4 extr Laboratory Data at Discharge: WBC 13.80 K/uL (4.3-10.9) H 11/07/20 04:57 Hgb 13.0 g/dL (13.6-17.9) L 11/07/20 04:57 Hct 38.7 % (39.6-49.0) L 11/07/20 04:57 Plt Count 350 K/uL (152-406) 11/07/20 04:57 Sodium Cancelled 11/07/20 14:00 Potassium Cancelled 11/07/20 14:00 BUN Cancelled 11/07/20 14:00 Creatinine Cancelled 11/07/20 14:00 Glucose Cancelled 11/07/20 14:00 Phosphorus 1.6 mg/dL (2.5-4.9) L 11/07/20 04:57 Magnesium 2.2 mg/dL (1.8-2.4) 11/07/20 04:57 Total Bilirubin Cancelled 11/07/20 10:17 AST Cancelled 11/07/20 10:17 ALT Cancelled 11/07/20 10:17 Alkaline Phosphatase Cancelled 11/07/20 10:17 Triglycerides 504 mg/dL (<150) H 11/06/20 05:38 Cholesterol 150 mg/dL (<200) 11/06/20 05:38 LDL Cholesterol Direct 59 mg/dL (100-129) L 11/06/20 05:38 HDL Cholesterol 24 mg/dL (40-60) L 11/06/20 05:38 Cholesterol/HDL Ratio 6.25 11/06/20 05:38 Home Medications: Ascorbic Acid [Vitamin C*] 500 mg PO QID tablet 11/07/20 Benzonatate [Tessalon Perle*] 100 mg PO TID PRN cap 11/07/20 Cholecalciferol (Vitamin D3) [Vitamin D 1000 Iu Tab*] 4,000 unit PO DAILY tab 11/07/20 Famotidine [Pepcid*] 40 mg PO BID tab 11/07/20 Hydrocodone/Chlorphen Polis [Tussionex Oral Susp*] 5 ml PO BID PRN osyr 11/07/20 Methylpred Na Suc [Solu-Medrol*] 80 mg IV BID vial 11/07/20 Thiamine HCl [Vitamin B-1*] 200 mg PO DAILY tablet 11/07/20 Zinc Sulfate [Zinc Sulfate*] 220 mg PO DAILY cap 11/07/20 Followup: NONE,NONE [Primary Care Provider] - Time spent managing pt's care (in minutes): 34
== END 2020-11-07 13:50 | disposition short-term general hospital (02) | DRG 637 ==
LOC: ER 20:07 → ERHOLD 11-06 02:34
PROVIDERS: ADMIT Internal Medicine; ATTEND Internal Medicine
DX: E13.10 Other specified diabetes mellitus with ketoacidosis without coma (principal); U07.1 COVID-19; J12.82 Pneumonia due to coronavirus disease 2019; N17.9 Acute kidney failure, unspecified; Z68.41 Body mass index [BMI] 40.0-44.9, adult; E87.1 Hypo-osmolality and hyponatremia; E66.01 Morbid (severe) obesity due to excess calories; R80.9 Proteinuria, unspecified
CPT/HCPCS: 36415; 71046; 71275; 74176; 76377; 80048; 80053; 80061; 80069; 80320; 80329; 81003; 82010; 82550; 82728; 82805; 82947; 83036; 83605; 83615; 83735; 83930; 84100; 84145; 84443; 85025; 86140; 99285; J1650; J2920; J2930; J3480; J7030; J7040; Q9967